=== PATIENT | female | born 1995 | race Two or more races ===

== ENCOUNTER 2018-12-26 22:40 | Emergency (ER) | payer BC ==
[~2018-12-26] VITALS: Ht 152.4 cm; Wt 63.5 kg
[2018-12-26 23:30] LABS: Basophils # (auto) 0.1 uL; Basophils % (auto) 0.9 % (0.0-2.0); Eosinophils # (auto) 0.1 uL; Eosinophils % (auto) 0.9 % (0.0-7.0); Hematocrit 36.7 % (36.0-46.0); Hemoglobin 12.8 g/dL (12.2-16.2); Lymphocytes # (auto) 3.5 uL; Lymphocytes % (auto) 26.1 % (10.0-50.0); Mean Corpuscular Hemoglobin 32.2 pg (28.0-32.0); Mean Corpuscular Hgb Conc. 34.9 g/dL (32.0-36.0); Mean Corpuscular Volume 92.3 fL (80.0-100.0); Monocytes # (auto) 0.8 uL; Monocytes % (auto) 6.1 % (0.0-12.0); Neutrophils # (auto) 8.9 uL; Nucleated Red Blood Cells % 0.1 %; Platelet Count (auto) 264 10^3/uL (140-450); Red Blood Cells 3.98 10^6/uL (4.0-5.20); Red Cell Distribution Width 13.7 % (11.8-14.3); White Blood Cell 13.4 10^3/uL (4.4-10.8)
[2018-12-26 23:45] LABS: Alanine Aminotransferase 29 U/L (13-56); Albumin 3.1 g/dL (3.4-5.0); Anion Gap 9 (5-15); Aspartate Aminotransferase 19 U/L (15-37); BUN/Creatinine Ratio 15.9; Blood Urea Nitrogen 7 mg/dL (7-18); Calcium 8.4 mg/dL (8.5-10.1); Carbon Dioxide 23 mmol/L (21-32); Chloride 107 mmol/L (98-107); GFR African American 226 mL/min; GFR Non-African American 187 mL/min; Glucose 81 mg/dL (74-106); Potassium 3.7 mmol/L (3.5-5.1); Sodium 139 mmol/L (136-145)
[2018-12-26 23:47] LABS: Urine Bacteria FEW /hpf (None Seen); Urine Blood 1+ /uL (Negative); Urine Specific Gravity 1.004 (1.001-1.035); Urine WBC 1 /hpf (0 - 5)
[2018-12-26 23:47] LABS: Alkaline Phosphatase 48 U/L (45-117); Bilirubin, Total 0.2 mg/dL (0.2-1.0); Total Protein 7.4 g/dL (6.4-8.2)
[2018-12-27 05:32] VITALS: BP 128/79
== END 2018-12-27 05:44 | disposition left against medical advice (07) ==
LOC: ER 22:46
DX: O46.92 Antepartum hemorrhage, unspecified, second trimester (principal); Z3A.15 15 weeks gestation of pregnancy; Z53.21 Procedure and treatment not carried out due to patient leaving prior to being seen by health care provider
CPT/HCPCS: 36415; 76805; 80053; 81001; 84702; 85025

== ENCOUNTER 2019-05-21 23:47 | Observation (INO) | payer BC ==
[2019-05-22 01:07] LABS: Basophils # (auto) 0.1 uL; Basophils % (auto) 1.1 % (0.0-2.0); Eosinophils # (auto) 0.1 uL; Eosinophils % (auto) 0.7 % (0.0-7.0); Hematocrit 36.6 % (36.0-46.0); Hemoglobin 12.2 g/dL (12.2-16.2); Lymphocytes # (auto) 2.6 uL; Lymphocytes % (auto) 19.5 % (10.0-50.0); Mean Corpuscular Hemoglobin 30.8 pg (28.0-32.0); Mean Corpuscular Hgb Conc. 33.2 g/dL (32.0-36.0); Mean Corpuscular Volume 92.8 fL (80.0-100.0); Monocytes # (auto) 0.8 uL; Monocytes % (auto) 6.2 % (0.0-12.0); Neutrophils # (auto) 9.7 uL; Neutrophils % (auto) 72.5 % (37.0-80.0); Platelet Count (auto) 213 10^3/uL (140-450); Red Blood Cells 3.94 10^6/uL (4.0-5.20); Red Cell Distribution Width 15.3 % (11.8-14.3); White Blood Cell 13.4 10^3/uL (4.4-10.8)
[2019-05-22 01:22] LABS: INR 0.97 (0.9-1.15); Partial Thromboplastin Time 25.9 sec (23.64-32.05)
[2019-05-22 01:23] LABS: Albumin 2.4 g/dL (3.4-5.0); Calcium 8.2 mg/dL (8.5-10.1); Potassium 3.9 mmol/L (3.5-5.1)
[2019-05-22 01:26] LABS: BUN/Creatinine Ratio 25.6; Bilirubin, Total 0.2 mg/dL (0.2-1.0); Uric Acid 4.3 mg/dL (2.6-6.0)
== END 2019-05-22 01:58 | disposition home or self-care (01) | DRG 833 ==
LOC: LDRP 23:47
PROVIDERS: ADMIT Obstetrics & Gynecology; ATTEND Obstetrics & Gynecology
DX: O16.3 Unspecified maternal hypertension, third trimester (principal); O26.893 Other specified pregnancy related conditions, third trimester; R51 Headache; H53.8 Other visual disturbances; Z3A.36 36 weeks gestation of pregnancy
CPT/HCPCS: 36415; 59025; 76818; 80053; 81002; 84550; 85025; 85610; 85730; G0378